=== PATIENT | female | born 1960 | race Caucasian/White ===

== ENCOUNTER → 2020-05-20 | Outpatient (CLI) | payer MEDICARE ==
--- NOTE | 2020-05-21 14:09 | Diagnostic Imaging Report ---
MRI SPINE LUMBAR WO HISTORY: Lumbar radiculopathy, low back pain, left side COMPARISON: None. TECHNIQUE: Sagittal T1, sagittal T2, sagittal STIR, axial T2, coronal T2, and axial proton density weighted images of the lumbar spine were obtained without contrast. DISCUSSION: Number of non-rib bearing lumbar vertebral bodies: 5. Alignment: Normal lordosis. No scoliosis. Vertebrae: No fractures, infection or neoplasm. Conus medullaris: Normal, ends at L1. Cauda equina: No masses or arachnoiditis. Posterior paraspinal muscles: Well preserved. No signal abnormalities. Soft tissues: No signal abnormalities. Mild to moderate multilevel disc degeneration is most prominent at T11-T12 and L4-L5. There are nonspecific inflammatory endplate changes at T11-T12 and, to a lesser extent, at L4-L5. T11-T12: Mild canal stenosis due to disc bulge and superimposed 5 mm left central disc protrusion. The left lateral recess is slightly effaced. No significant foraminal stenosis. T12-L1: Disc bulge without significant canal or foraminal stenosis. L1-L2: Disc bulge without significant canal or foraminal stenosis. L2-L3: Disc bulge without significant canal or foraminal stenosis. L3-L4: There is mild retrolisthesis of L3 on L4. Mild canal stenosis due to disc bulge and ligamentum flavum thickening. Mild left foraminal stenosis due to asymmetry of the disc bulge and facet arthrosis. No significant right foraminal stenosis. L4-L5: Grade 1 anterolisthesis of L4 on L5 is due to severe bilateral L4-L5 facet arthrosis. Bilateral L4-L5 facet effusions are present. Severe canal stenosis due to uncovered disc bulge and ligamentum flavum thickening. The thecal sac is effaced. Severe bilateral foraminal stenoses, left greater than right, due to uncovered disc bulge and facet arthrosis. L5-S1: Mild right and moderate left foraminal stenoses due to disc bulge and facet arthrosis. No significant canal stenosis. Small bilateral L5-S1 facet effusions are present. There is mild periarticular edema along the left L5-S1 facet joint. IMPRESSION: 1. Mild to moderate multilevel disc degeneration, most prominent at T11-T12 and L4-L5. There are nonspecific inflammatory endplate changes at T11-T12. 2. Grade 1 anterolisthesis of L4 on L5 due to severe bilateral L4-L5 facet arthrosis. Bilateral L4-L5 facet effusions are present. 3. Multilevel degenerative canal stenoses - severe at L4-L5 with thecal sac effacement. 4. Multilevel degenerative foraminal stenoses - severe bilaterally at L4-L5 (left greater than right); moderate on the left at L5-S1. 5. Suspected left L5-S1 facet synovitis. Signed by: Dr. Niles Weinberg M.D. on 05/21/2020 2:06 PM
== END ==
LOC: MRI 13:33
PROVIDERS: ATTEND Psychiatry & Neurology Neurology
DX: M54.16 Radiculopathy, lumbar region (principal)
CPT/HCPCS: 72148